=== PATIENT | male | born 1940 | race Caucasian/White ===

== ENCOUNTER 2017-06-01 17:30 | Inpatient (IN) | payer MEDICARE, BC ==
[~2017-06-01] VITALS: Ht 177.8 cm; Wt 76.2 kg
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
--- NOTE | ~2017-06-01 | PN ---
PATIENT:KARINA GLEASON MEDICAL RECORD: [id number] LOCATION:[facility] [address] ADMISSION DATE: 06/01/17 PROGRESS NOTE DATE OF SERVICE: 06/14/2017 SUBJECTIVE: The patient's case was discussed with staff. He has no new complaint. OBJECTIVE: The patient is significantly and seriously impaired. He is not eating well. He is regularly agitated and requires p.r.n. medications to calm him. ASSESSMENT: No change in diagnoses. PLAN: The patient has end-stage dementia. I am going to treat him with Megace to stimulate his appetite. I do not think he is appropriate for an assisted living center and even beyond that I must regrettably say that I do think he is appropriate for palliative care or even hospice. TRANSINT:[id number] Voice Confirmation ID: [id number] DOCUMENT ID: [id number] KAREEM PRAJAPATI MD at 1016 CC: [id number] DICTATION DATE: 06/14/17 190 REFINER OPERATOR: 06/15/17 0327 ADM IN [facility] [address] [place] [address]
--- NOTE | ~2017-06-01 | PN ---
PATIENT:KARINA GLEASON MEDICAL RECORD: [id number] LOCATION:[facility] ADMISSION DATE: 06/01/17 PROGRESS NOTE DATE OF SERVICE: 06/10/2017 SUBJECTIVE: The patient's case was discussed with staff. He has no new complaint. OBJECTIVE: The patient has been combative and at times difficult to redirect. His oral intake is poor. He did require p.r.n. medication earlier today because of agitation. ASSESSMENT: No change in diagnoses. PLAN: The patient is taking antipsychotic and a benzodiazepine to assist with his agitation and anxiety. He is tolerating these initial doses well. I would like to see how it goes a little longer before I try to increase it because I am fearful of precipitating a fall in this patient who so far ambulates with reasonable stability. There is a concern with his oral intake. He is very advanced in his dementia. He tends to just grab and mash food on his plate through his hands in a way that is very primitive and consistent with an advanced dementia. I have asked nursing staff to feed him. I think that will help. I am also going to give him an appetite stimulant. This dementia is advanced. His prognosis is poor. I am hopeful that we can help him some, but it is a very advanced case and it is not unreasonable to consider comfort care or even hospice for him. TRANSINT:[id number] Voice Confirmation ID: [id number] DOCUMENT ID: [id number] KAREEM PRAJAPATI MD at 0804 CC: [id number] DICTATION DATE: 06/10/17 1410 OUTSOLES CHANNEL OPENER: 06/10/17 1501 ADM IN [place] [id number] [place] [address]
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
--- NOTE | ~2017-06-01 | PN ---
PATIENT:KARINA GLEASON MEDICAL RECORD: [id number] LOCATION:[facility] [address] ADMISSION DATE: 06/01/17 PROGRESS NOTE DATE OF SERVICE: 06/03/2017 SUBJECTIVE: The patient's case was discussed with staff. He has no new complaint. OBJECTIVE: The patient is in good behavioral control with limited insight about his condition. He was not in good behavioral control last night and required p.r.n. medications on 2 occasions for agitation that are documented elsewhere. He has no recollection of these events when asked about it, it is clear that his dementia is advanced. ASSESSMENT: No change in diagnoses. PLAN: Brief supportive and educational interventions were made. I am going to prescribe Geodon at a dose of 20 mg twice daily for the patient's agitation. He will be monitored for clinical changes associated with its use. His long-term prognosis is guarded. TRANSINT:[id number] Voice Confirmation ID: [id number] DOCUMENT ID: [id number] KAREEM PRAJAPATI MD at 1403 CC: [id number] DICTATION DATE: 06/03/17 1334 FIELD INSTALLER: 06/03/17 1347 ADM IN [facility] [address] [place] [address]
--- NOTE | ~2017-06-01 | PN ---
PATIENT:KARINA GLEASON MEDICAL RECORD: [id number] LOCATION:[facility] ADMISSION DATE: 06/01/17 PROGRESS NOTE DATE OF SERVICE: 06/07/2017 SUBJECTIVE: The patient's case was discussed with staff. He has no new complaint. OBJECTIVE: The patient is in good behavioral control with limited insight about his condition. He tolerates his medicines well, but is somewhat sleepy. He has not been aggressive. ASSESSMENT: No change in diagnoses. PLAN: The patient's trazodone is going to be discontinued and his scheduled dose of Geodon cut in half. I suspect that the Geodon is making him sleepy. He will be monitored for side effects. His long-term prognosis is guarded. TRANSINT:[id number] Voice Confirmation ID: [id number] DOCUMENT ID: [id number] KAREEM PRAJAPATI MD at 1344 CC: [id number] DICTATION DATE: 06/07/17 1422 NURSING PROGRAM DIRECTOR: 06/07/17 1446 ADM IN [place] [id number] [place] [id number]
--- NOTE | ~2017-06-01 | PN ---
PATIENT:KARINA GLEASON MEDICAL RECORD: [id number] LOCATION:[facility] [address] ADMISSION DATE: 06/01/17 PROGRESS NOTE DATE OF SERVICE: 06/08/2017 SUBJECTIVE: The patient's case was discussed with staff. He has no new complaint. OBJECTIVE: The patient is in good behavioral control with limited insight about his condition. He tolerates his medicines well. ASSESSMENT: No change in diagnoses. PLAN: Brief supportive and educational interventions were made. Skilled Nursing prognosis is guarded. TRANSINT:[id number] Voice Confirmation ID: [id number] DOCUMENT ID: [id number] KAREEM PRAJAPATI MD at 1218 CC: [id number] DICTATION DATE: 06/08/17 1446 DIVISION CONTROLLER: 06/08/17 1459 ADM IN [place] [id number] [place] [address]
--- NOTE | ~2017-06-01 | PN ---
PATIENT:KARINA GLEASON MEDICAL RECORD: [id number] LOCATION:[facility] [address] ADMISSION DATE: 06/01/17 PROGRESS NOTE DATE OF SERVICE: 06/09/2017 SUBJECTIVE: The patient's case was discussed with staff. He has no new complaint. OBJECTIVE: The patient is in good behavioral control with limited insight about his condition. He does tolerate his medicines well. ASSESSMENT: No change in diagnoses. PLAN: Current medicines and therapies have been reviewed. His long-term prognosis is guarded. TRANSINT:[id number] Voice Confirmation ID: [id number] DOCUMENT ID: [id number] KAREEM PRAJAPATI MD at 1341 CC: [id number] DICTATION DATE: 06/09/17 1231 SHANK BONER: 06/09/17 1245 ADM IN [address] [id number] [place] [address]
--- NOTE | ~2017-06-01 | PN ---
PATIENT:KARINA GLEASON MEDICAL RECORD: [id number] LOCATION:[facility] [address] ADMISSION DATE: 06/01/17 PROGRESS NOTE DATE OF SERVICE: 06/04/2017 SUBJECTIVE: No new complaint. OBJECTIVE: The patient has been occasionally noncompliant with medication. He did require p.r.n. last time because of agitation. On exam, mood is euthymic. Affect is rather constricted. Speech is terse. Content of thought unchanged. Sensorium unchanged. ASSESSMENT: No change in diagnosis. PLAN: 1. Continue current medication. 2. Continue supportive therapy. TRANSINT:[id number] Voice Confirmation ID: [id number] DOCUMENT ID: [id number] ADELFO HUSSEIN III, MD at 1341 CC: [id number] DICTATION DATE: 06/04/17 1146 PARTY HOST: 06/04/17 1200 ADM IN [place] [id number] [place] [id number]
--- NOTE | ~2017-06-01 | PN ---
PATIENT:KARINA GLEASON MEDICAL RECORD: [id number] LOCATION:[facility] [address] ADMISSION DATE: 06/01/17 PROGRESS NOTE DATE OF SERVICE: 06/11/2017 SUBJECTIVE: No new complaint. OBJECTIVE: The patient has been agitated and aggressive over the last 24 hours. Geodon dosage was increased earlier this morning. On exam, mood is very irritable. Affect is brittle. Speech is terse. Content of thought is positive for nonspecific paranoid ideation. Sensorium shows no change. ASSESSMENT: No change in diagnosis. PLAN: 1. Continue current medication. 2. Continue supportive therapy. TRANSINT:[id number] Voice Confirmation ID: [id number] DOCUMENT ID: [id number] ADELFO HUSSEIN III, MD at 1037 CC: [id number] DICTATION DATE: 06/11/17 1114 TEMPERATURE CONTROL INSPECTOR: 06/11/17 1257 ADM IN [place] [id number] [place] [id number]
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
[2017-06-01] MEDS ORDERED: KLONOPIN1 MG PO (18:49)
[2017-06-01] MEDS ORDERED: TRANXENE T-TAB7.5 MG PO ×2 (18:51→19:56)
[2017-06-01] MEDS ORDERED: ACETAMINOPHEN325 MG PO (18:54)
[2017-06-01] MEDS ORDERED: SEROQUEL XR50 MG PO (18:56)
[2017-06-01] MEDS ORDERED: RESTORIL15 MG PO (18:59)
[2017-06-01 19:30] VITALS: BP 142/78
[2017-06-01] MEDS ORDERED: NORVASC5 MG PO (19:43)
[2017-06-01] MEDS ORDERED: BAYER CHEWABLE81 MG PO (19:45)
[2017-06-01] MEDS ORDERED: ARICEPT10 MG PO (19:48)
[2017-06-01] MEDS ORDERED: NEURONTIN600 MG PO (19:51)
[2017-06-01] MEDS ORDERED: MOBIC7.5 MG PO (19:52)
[2017-06-01] MEDS ORDERED: PRAVACHOL20 MG PO (19:53)
[2017-06-01] MEDS ORDERED: SEROQUEL200 MG PO (19:59)
[2017-06-01] MEDS ORDERED: DESERYL100 MG PO (20:00)
[2017-06-01 22:02] VITALS: BP 135/71; BMI 25.6
[2017-06-02 07:29] LABS: BASOPHILS 0.5 % (0-2); EOSINOPHILS 2.5 % (0-7); HEMATOCRIT 38.5 % (42.0-54.0); HEMOGLOBIN 12.4 g/dL (13.5-17.5); LYMPHOCYTES 13.3 % (15-50); MCHC 32.2 g/dL (31.0-37.0); MONOCYTES 7.1 % (2-11); NEUTROPHILS 76.6 % (40-80); PLATELET COUNT 257 10x3/uL (130-400); RBC 4.14 10x6/uL (4.20-6.10); RDW 13.1 % (11.5-14.5); WBC 6.3 10x3/uL (4.8-10.8)
[2017-06-02 07:55] VITALS: BP 138/73
[2017-06-02 08:35] LABS: ALBUMIN 3.7 g/dL (3.4-5.0); ALKALINE PHOSPHATASE 49 U/L (46-116); ALT (SGPT) 16 U/L (10-68); CALC OSMOLALITY 281 mosm/kg (275-300); CARBON DIOXIDE 27.5 mmol/L (21.0-32.0); CHLORIDE - SERUM 105 mmol/L (98-107); CHOL - HDL RATIO 3.9 ratio (2.3-4.9); CHOLESTEROL, TOTAL 155 mg/dL (0-200); CREATININE - SERUM 0.9 mg/dL (0.6-1.3); GLUCOSE 101 mg/dL (74-106); HDL CHOLESTEROL 40 mg/dL (32-96); LDL CHOLESTEROL 99 mg/dL (0-100); LDL-HDL RATIO 2.5 ratio (1.5-3.5); POTASSIUM - SERUM 4.2 mmol/L (3.5-5.1); PROTEIN - SERUM 6.3 g/dL (6.4-8.2); SODIUM 141 mmol/L (136-145); THYROID STIMULATING HORMONE 0.44 uIU/mL (0.36-3.74); TRIGLYCERIDE 82 mg/dL (30-200); UREA NITROGEN 14 mg/dL (7-18); eGFR NON AFRICAN AMERICAN 87 mL/min (90-120)
[2017-06-02 09:58] VITALS: BMI 25.6
[2017-06-02 10:28] VITALS: Ht 177.8 cm; Wt 76.2 kg
[2017-06-02 20:48] VITALS: BP 140/87
[2017-06-03 06:14] LABS: FOLATE (FOLIC ACID) - SERUM 12.6 ng/mL (>3.0); RAPID PLASMA REAGIN Non Reactive (Non Reactive)
[2017-06-03 07:25] LABS: VITAMIN D 25 HYDROXY 37.9 ng/mL (30.0-100.0)
[2017-06-03 08:11] VITALS: BP 138/77
[2017-06-05 12:49] VITALS: BP 174/96
[2017-06-06 07:00] VITALS: BP 135/81
[2017-06-06 16:10] LABS: APPEARANCE CLEAR (CLEAR); BILIRUBIN NEGATIVE (NEGATIVE); COLOR DK YELLOW (YELLOW); GLUCOSE NEGATIVE (NEGATIVE); KETONE NEGATIVE (NEGATIVE); NITRITE NEGATIVE (NEGATIVE); PROTEIN NEGATIVE (NEGATIVE); SPECIFIC GRAVITY 1.025 (1.005-1.020); UROBILINOGEN NORMAL (NORMAL)
[2017-06-06 16:14] LABS: BACTERIA MODERATE /hpf (NONE SEEN); CALCIUM OXALATE CRYSTALS 25-50 /hpf (NONE SEEN); EPITHELIAL CELLS OCC /hpf (0-5); GRANULAR CAST RARE /lpf (NONE SEEN); HYALINE CAST OCC /lpf (NONE SEEN); MUCUS >1+ /lpf (NONE SEEN); RED CELLS - URINE 0-5 /hpf (0-5); WHITE CELLS - URINE OCC /hpf (0-5)
[2017-06-06 21:12] VITALS: BP 139/100
[2017-06-07 07:28] VITALS: BP 116/69
[2017-06-07 21:22] VITALS: BP 130/79
[2017-06-08 09:45] VITALS: BP 140/117
[2017-06-08 19:41] VITALS: BP 115/75
[2017-06-09 08:54] VITALS: BP 103/61
[2017-06-09 20:50] VITALS: BP 130/78
[2017-06-10 08:38] VITALS: BP 136/88
[2017-06-11 09:45] VITALS: BP 148/68
[2017-06-11 19:20] VITALS: BP 132/81
[2017-06-12 09:41] VITALS: BP 133/73
[2017-06-12 20:49] VITALS: BP 160/83
[2017-06-13 07:00] VITALS: BP 142/83
[2017-06-14 20:03] LABS: HEMATOCRIT 41.9 % (42.0-54.0); HEMOGLOBIN 14.4 g/dL (13.5-17.5); MCHC 34.4 g/dL (31.0-37.0); MCV 90.1 fL (80.0-100.0); MEAN PLATELET VOLUME 10.2 fL (7.4-10.4); PLATELET COUNT 411 10x3/uL (130-400); RBC 4.65 10x6/uL (4.20-6.10); RDW 12.8 % (11.5-14.5); WBC 24.7 10x3/uL (4.8-10.8)
[2017-06-14 20:09] VITALS: BP 106/91
[2017-06-14 20:53] LABS: CALCIUM 9.5 mg/dL (8.5-10.1); CARBON DIOXIDE 24.8 mmol/L (21.0-32.0); CREATININE - SERUM 1.3 mg/dL (0.6-1.3); POTASSIUM - SERUM 3.8 mmol/L (3.5-5.1)
[2017-06-14 21:34] LABS: EOSINOPHILS 2 % (0-7); LYMPHOCYTES 9 % (15-50); MONOCYTES 3 % (2-11); NEUTROPHILS 86 % (40-80); PLATELET ESTIMATE NORMAL
[2017-06-15 07:00] VITALS: BP 105/55
[2017-06-15] MEDS ORDERED: NORVASC10 MG PO (10:06)
[2017-06-15] MEDS ORDERED: MEGACE40 MG PO (10:06)
[2017-06-15] MEDS ORDERED: KLONOPIN0.5 MG PO (10:08)
[2017-06-15] MEDS ORDERED: GEODON20 MG PO (10:08)
== END 2017-06-15 11:32 | disposition short-term general hospital (02) | DRG 56 ==
LOC: D.PSYCH 17:30
PROVIDERS: Psychiatry & Neurology Psychiatry
DX: G30.1 Alzheimer's disease with late onset (principal); J18.9 Pneumonia, unspecified organism; F02.81 Dementia in other diseases classified elsewhere, unspecified severity, with behavioral disturbance; I25.10 Atherosclerotic heart disease of native coronary artery without angina pectoris; Z95.5 Presence of coronary angioplasty implant and graft; I10 Essential (primary) hypertension; E78.5 Hyperlipidemia, unspecified; M19.90 Unspecified osteoarthritis, unspecified site; F41.9 Anxiety disorder, unspecified; D64.9 Anemia, unspecified; Z87.891 Personal history of nicotine dependence

== ENCOUNTER 2017-06-15 12:17 | Inpatient (IN) | payer MEDICARE, BC ==
[~2017-06-15] VITALS: Ht 177.8 cm; Wt 67.1 kg
--- NOTE | ~2017-06-15 | CN ---
PATIENT NAME:KARINA GLEASON MEDICAL RECORD: [id number] : 42 LOCATION:[address] ADMIT DATE: 06/15/17 ACCOUNT: [id number] CONSULTING PHYSICIAN: ZOHAIB ESPAÑA MD REFERRING PHYSICIAN: DWAYNE LIPSCOMB MD DATE OF CONSULTATION: 06/15/2017 CONSULT REQUESTING PHYSICIAN: aLine Morales MD REASON FOR CONSULTATION: Left lower lobe pneumonia, fever. HISTORY OF PRESENT ILLNESS: The patient was transferred to the medical [facility] with a fever and leukocytosis of 24,000. The patient is very confused. The history was taken mainly by talking to Dr. Morales and the patient's . The patient had pneumonia in March. REVIEW OF SYSTEMS: The detail is not obtainable. PAST MEDICAL HISTORY: 1. Pneumonia. 2. COPD. 3. Gastroesophageal reflux disease. 4. Hyperlipidemia. 5. Coronary artery disease. 6. Hypertension. 7. Alzheimer dementia of severe degree. 8. Anxiety. ALLERGIES: He has no known drug allergy. SURGICAL HISTORY: He has a knee surgery in July of last year. PRESENT MEDICATIONS: On Changers is reviewed. PERSONAL AND SOCIAL HISTORY: He is an ex-smoker, nondrinker. FAMILY HISTORY: Noncontributory. PHYSICAL EXAMINATION: GENERAL: Now, the patient is lying comfortably. He is not in acute distress. VITAL SIGNS: The blood pressure is 100/60, pulse is 60, respiration is 16, temperature 100.8, SPO2 is 90% to 93% on room air. HEENT: Conjunctivae pink. Sclerae nonicteric. NECK: Supple, no JVD. CHEST: There is left basal crackle. No wheezing. HEART: Rhythm regular, normal sound, no murmur. ABDOMEN: Soft, bowel sounds present. No hepatosplenomegaly. RECTAL: Deferred. EXTREMITIES: No cyanosis, no clubbing. There is right lower extremity edema. LABORATORY DATA: CBC: WBC 25, hemoglobin 12.6, hematocrit 37.2, the platelet count is 296. IMPRESSION: 1. Pneumonia, left lower lobe, most likely hospital-acquired pneumonia with the CONSULT REPORT [id number] KARINA GLEASON patient's recent hospitalization, rule out aspiration. 2. Gastroesophageal reflux disease. 3. Dementia of Alzheimer type of severe degree. 4. Febrile illness. 5. Leukocytosis secondary to pneumonia. RECOMMENDATION: 1. Albuterol ipratropium nebulizer. 2. Discontinue Rocephin. Start him on cefepime, Levaquin, and vancomycin. 3. Follow up labs and chest radiograph. 4. Speech evaluation. Dr. Morales, thank you for involving me in the care of Mr. Gleason. TRANSINT:[id number] Voice Confirmation ID: [id number] DOCUMENT ID: [id number] ZOHAIB ESPAÑA MD at 1410 CC: [id number] DICTATION DATE: 06/15/17 180 CREDIT INTERN: 06/16/17 0125 ADM IN [facility] [address] [place] [id number]
--- NOTE | ~2017-06-15 | PN ---
PATIENT:KARINA GLEASON MEDICAL RECORD: [id number] LOCATION:[address] ADMISSION DATE: 06/15/17 PROGRESS NOTE DATE OF SERVICE: 06/15/2017 SUBJECTIVE: The patient's case was discussed with staff. He has no new complaint. OBJECTIVE: The patient is in good behavioral control with limited insight about his condition. He tolerates his medicines well. ASSESSMENT: No change in diagnoses. PLAN: The patient is apparently suffering from pneumonia. This would certainly explain his lethargy. His primary care physician is going to transfer him to internal medicine for evaluation and treatment and he may be returned here if it is appropriate once that treatment is completed. TRANSINT:[id number] Voice Confirmation ID: [id number] DOCUMENT ID: [id number] KAREEM PRAJAPATI MD at 1444 CC: [id number] DICTATION DATE: 06/15/17 1517 SENIOR LINUX ENGINEER: 06/15/17 1537 ADM IN [place] [id number] [place] [address]
[~2017-06-15 12:17] MED LIST: ACETAMINOPHEN325 MG PO; ARICEPT10 MG PO; BAYER CHEWABLE81 MG PO; DESERYL100 MG PO; GEODON20 MG PO; KLONOPIN0.5 MG PO; KLONOPIN1 MG PO; MEGACE40 MG PO; MOBIC7.5 MG PO; NEURONTIN600 MG PO; NORVASC10 MG PO; NORVASC5 MG PO; PRAVACHOL20 MG PO; RESTORIL15 MG PO; SEROQUEL XR50 MG PO; SEROQUEL200 MG PO; TRANXENE T-TAB7.5 MG PO
[2017-06-15 14:04] VITALS: BMI 22.7
[2017-06-15 16:34] VITALS: BP 100/60
[2017-06-15 17:34] LABS: APPEARANCE CLEAR (CLEAR); COLOR YELLOW (YELLOW); SPECIFIC GRAVITY 1.025 (1.005-1.020)
[2017-06-15 17:36] LABS: BACTERIA FEW /hpf (NONE SEEN); BILIRUBIN NEGATIVE (NEGATIVE); GLUCOSE NEGATIVE (NEGATIVE); KETONE MODERATE mg/dL (NEGATIVE); NITRITE NEGATIVE (NEGATIVE); PROTEIN TRACE mg/dL (NEGATIVE); RED CELLS - URINE OCC /hpf (0-5); UROBILINOGEN NORMAL (NORMAL); WHITE CELLS - URINE 0-5 /hpf (0-5)
[2017-06-15 17:40] LABS: HEMATOCRIT 37.2 % (42.0-54.0); HEMOGLOBIN 12.6 g/dL (13.5-17.5); MCH 30.7 pg (26.0-34.0); MCHC 33.9 g/dL (31.0-37.0); MCV 90.5 fL (80.0-100.0); RBC 4.11 10x6/uL (4.20-6.10); RDW 12.9 % (11.5-14.5)
[2017-06-15 17:41] LABS: BASOPHILS 0 % (0-2); EOSINOPHILS 0 % (0-7); IMMATURE GRANULOCYTES 0.8 % (0-5); LYMPHOCYTES 3.8 % (15-50); MEAN PLATELET VOLUME 10.5 fL (7.4-10.4); MONOCYTES 4.8 % (2-11); NEUTROPHILS 90.6 % (40-80); PLATELET COUNT 296 10x3/uL (130-400)
[2017-06-15 21:30] VITALS: BP 94/52
[2017-06-16 01:12] VITALS: BP 90/53
[2017-06-16 05:18] LABS: BASOPHILS 0.1 % (0-2); EOSINOPHILS 0.2 % (0-7); HEMATOCRIT 33.2 % (42.0-54.0); HEMOGLOBIN 10.9 g/dL (13.5-17.5); IMMATURE GRANULOCYTES 0.4 % (0-5); LYMPHOCYTES 7.3 % (15-50); MCH 29.9 pg (26.0-34.0); MCHC 32.8 g/dL (31.0-37.0); MEAN PLATELET VOLUME 10.8 fL (7.4-10.4); MONOCYTES 4.8 % (2-11); NEUTROPHILS 87.2 % (40-80); PLATELET COUNT 265 10x3/uL (130-400); RBC 3.65 10x6/uL (4.20-6.10); WBC 18.9 10x3/uL (4.8-10.8)
[2017-06-16 05:21] VITALS: BP 90/53
[2017-06-16 05:39] LABS: ALBUMIN 2.3 g/dL (3.4-5.0); ANION GAP 12.5 mmol/L (8-16); BILIRUBIN - TOTAL 0.9 mg/dL (0.2-1.3); CALCIUM 8.3 mg/dL (8.5-10.1); CARBON DIOXIDE 26.9 mmol/L (21.0-32.0); CREATININE - SERUM 1.1 mg/dL (0.6-1.3); MAGNESIUM - SERUM 1.7 mg/dL (1.8-2.4); POTASSIUM - SERUM 3.4 mmol/L (3.5-5.1); PROTEIN - SERUM 5.6 g/dL (6.4-8.2)
[2017-06-16 08:09] VITALS: BP 101/66
[2017-06-16 10:58] VITALS: Ht 177.8 cm; Wt 67.1 kg
[2017-06-16 11:34] VITALS: BP 177/74
[2017-06-16 15:36] VITALS: BP 98/56
[2017-06-16 20:11] VITALS: BP 131/74
[2017-06-17] VITALS: BP 124/65
[2017-06-17 05:33] VITALS: BP 119/69
[2017-06-17 06:24] LABS: BASOPHILS 0.1 % (0-2); EOSINOPHILS 0.5 % (0-7); HEMATOCRIT 33.7 % (42.0-54.0); HEMOGLOBIN 11.4 g/dL (13.5-17.5); IMMATURE GRANULOCYTES 0.3 % (0-5); LYMPHOCYTES 6.1 % (15-50); MCH 30.6 pg (26.0-34.0); MCHC 33.8 g/dL (31.0-37.0); MCV 90.6 fL (80.0-100.0); MEAN PLATELET VOLUME 11.3 fL (7.4-10.4); MONOCYTES 4.2 % (2-11); NEUTROPHILS 88.8 % (40-80); PLATELET COUNT 306 10x3/uL (130-400); RBC 3.72 10x6/uL (4.20-6.10); RDW 12.7 % (11.5-14.5); WBC 15.6 10x3/uL (4.8-10.8)
[2017-06-17 06:32] LABS: CALC OSMOLALITY 277 mosm/kg (275-300); CALCIUM 8.5 mg/dL (8.5-10.1); CARBON DIOXIDE 23.2 mmol/L (21.0-32.0); CHLORIDE - SERUM 104 mmol/L (98-107); GLUCOSE 100 mg/dL (74-106); POTASSIUM - SERUM 3.3 mmol/L (3.5-5.1); SODIUM 138 mmol/L (136-145); eGFR NON AFRICAN AMERICAN 77 mL/min (90-120)
[2017-06-17 06:38] LABS: UREA NITROGEN 17 mg/dL (7-18)
[2017-06-17 08:33] VITALS: BP 125/79
[2017-06-17 09:17] LABS: IMMUNOGLOBULIN A 111 mg/dL (61-437); IMMUNOGLOBULIN G 489 mg/dL (700-1600); IMMUNOGLOBULIN M 42 mg/dL (15-143)
[2017-06-17 13:08] VITALS: BP 118/71
[2017-06-17 16:03] VITALS: BP 144/82
[2017-06-17 20:00] VITALS: BP 110/67
[2017-06-18] VITALS: BP 118/66
[2017-06-18 04:00] VITALS: BP 120/68
[2017-06-18 04:25] LABS: BASOPHILS 0.2 % (0-2); EOSINOPHILS 1.4 % (0-7); HEMOGLOBIN 11.7 g/dL (13.5-17.5); IMMATURE GRANULOCYTES 0.2 % (0-5); LYMPHOCYTES 8.9 % (15-50); MCH 30.2 pg (26.0-34.0); MCHC 33.4 g/dL (31.0-37.0); MCV 90.4 fL (80.0-100.0); MEAN PLATELET VOLUME 10.5 fL (7.4-10.4); MONOCYTES 5.7 % (2-11); NEUTROPHILS 83.6 % (40-80); RBC 3.87 10x6/uL (4.20-6.10); RDW 12.9 % (11.5-14.5); WBC 12.2 10x3/uL (4.8-10.8)
[2017-06-18 04:26] LABS: PLATELET COUNT 368 10x3/uL (130-400)
[2017-06-18 05:15] LABS: CALC OSMOLALITY 281 mosm/kg (275-300); CALCIUM 8.5 mg/dL (8.5-10.1); CARBON DIOXIDE 24.5 mmol/L (21.0-32.0); CHLORIDE - SERUM 106 mmol/L (98-107); GLUCOSE 106 mg/dL (74-106); POTASSIUM - SERUM 3.3 mmol/L (3.5-5.1); SODIUM 142 mmol/L (136-145); UREA NITROGEN 11 mg/dL (7-18); eGFR NON AFRICAN AMERICAN 77 mL/min (90-120)
[2017-06-18 09:56] VITALS: BP 141/82
[2017-06-18 12:23] VITALS: BP 133/80
[2017-06-18 16:59] VITALS: BP 137/90
[2017-06-18 20:33] VITALS: BP 137/98
[2017-06-18 23:55] LABS: ALBUMIN 2.5 g/dL (3.4-5.0); ALKALINE PHOSPHATASE 56 U/L (46-116); ALT (SGPT) 32 U/L (10-68); CALC OSMOLALITY 279 mosm/kg (275-300); CALCIUM 8.2 mg/dL (8.5-10.1); CARBON DIOXIDE 25.2 mmol/L (21.0-32.0); CHLORIDE - SERUM 105 mmol/L (98-107); CREATININE - SERUM 0.9 mg/dL (0.6-1.3); GLUCOSE 101 mg/dL (74-106); POTASSIUM - SERUM 3.3 mmol/L (3.5-5.1); PROTEIN - SERUM 6.3 g/dL (6.4-8.2); SODIUM 141 mmol/L (136-145); UREA NITROGEN 11 mg/dL (7-18); eGFR NON AFRICAN AMERICAN 87 mL/min (90-120)
[2017-06-19 00:41] VITALS: BP 137/90
[2017-06-19 05:37] LABS: BASOPHILS 0.2 % (0-2); HEMATOCRIT 37.7 % (42.0-54.0); HEMOGLOBIN 12.7 g/dL (13.5-17.5); IMMATURE GRANULOCYTES 0.4 % (0-5); LYMPHOCYTES 8.4 % (15-50); MCH 30.2 pg (26.0-34.0); MCHC 33.7 g/dL (31.0-37.0); MCV 89.5 fL (80.0-100.0); MEAN PLATELET VOLUME 10.5 fL (7.4-10.4); MONOCYTES 5.7 % (2-11); NEUTROPHILS 83.3 % (40-80); PLATELET COUNT 424 10x3/uL (130-400); RBC 4.21 10x6/uL (4.20-6.10); RDW 12.8 % (11.5-14.5); WBC 15.1 10x3/uL (4.8-10.8)
[2017-06-19 05:50] VITALS: BP 137/82
[2017-06-19 06:09] LABS: CALC OSMOLALITY 279 mosm/kg (275-300); CALCIUM 8.8 mg/dL (8.5-10.1); CARBON DIOXIDE 23.3 mmol/L (21.0-32.0); CHLORIDE - SERUM 105 mmol/L (98-107); CREATININE - SERUM 0.8 mg/dL (0.6-1.3); GLUCOSE 107 mg/dL (74-106); POTASSIUM - SERUM 3.5 mmol/L (3.5-5.1); SODIUM 141 mmol/L (136-145); UREA NITROGEN 9 mg/dL (7-18); eGFR NON AFRICAN AMERICAN > 90 mL/min (90-120)
[2017-06-19 08:13] VITALS: BP 157/85
[2017-06-19 11:25] VITALS: BP 131/83
[2017-06-19 15:44] VITALS: BP 140/78
[2017-06-19 20:30] VITALS: BP 150/85
[2017-06-20 00:30] VITALS: BP 152/94
[2017-06-20 04:30] VITALS: BP 127/89
[2017-06-20 06:24] LABS: CALC OSMOLALITY 279 mosm/kg (275-300); CALCIUM 8.6 mg/dL (8.5-10.1); CARBON DIOXIDE 23.4 mmol/L (21.0-32.0); CHLORIDE - SERUM 103 mmol/L (98-107); CREATININE - SERUM 0.8 mg/dL (0.6-1.3); GLUCOSE 104 mg/dL (74-106); POTASSIUM - SERUM 3.7 mmol/L (3.5-5.1); SODIUM 141 mmol/L (136-145); UREA NITROGEN 9 mg/dL (7-18); eGFR NON AFRICAN AMERICAN > 90 mL/min (90-120)
[2017-06-20 06:27] LABS: BASOPHILS 0.3 % (0-2); EOSINOPHILS 1.1 % (0-7); HEMATOCRIT 39.4 % (42.0-54.0); HEMOGLOBIN 13.2 g/dL (13.5-17.5); IMMATURE GRANULOCYTES 0.4 % (0-5); LYMPHOCYTES 6.8 % (15-50); MCH 29.9 pg (26.0-34.0); MCHC 33.5 g/dL (31.0-37.0); MCV 89.3 fL (80.0-100.0); MEAN PLATELET VOLUME 10.7 fL (7.4-10.4); NEUTROPHILS 84.4 % (40-80); PLATELET COUNT 369 10x3/uL (130-400); RBC 4.41 10x6/uL (4.20-6.10); WBC 15.2 10x3/uL (4.8-10.8)
[2017-06-20 08:29] VITALS: BP 152/93
[2017-06-20 11:31] VITALS: BP 112/67
[2017-06-20 15:47] VITALS: BP 148/77
[2017-06-20 20:30] VITALS: BP 163/87
[2017-06-21 00:30] VITALS: BP 123/63
[2017-06-21 04:30] VITALS: BP 127/78
[2017-06-21 05:26] LABS: HEMATOCRIT 33.8 % (42.0-54.0); HEMOGLOBIN 11.2 g/dL (13.5-17.5); MCH 29.7 pg (26.0-34.0); MCHC 33.1 g/dL (31.0-37.0); MCV 89.7 fL (80.0-100.0); MEAN PLATELET VOLUME 9.7 fL (7.4-10.4); PLATELET COUNT 402 10x3/uL (130-400); RBC 3.77 10x6/uL (4.20-6.10); WBC 20.5 10x3/uL (4.8-10.8)
[2017-06-21 05:48] LABS: CALCIUM 8.5 mg/dL (8.5-10.1); CARBON DIOXIDE 26.3 mmol/L (21.0-32.0); POTASSIUM - SERUM 3.3 mmol/L (3.5-5.1)
[2017-06-21 05:52] LABS: CREATININE - SERUM 1.1 mg/dL (0.6-1.3)
[2017-06-21 06:15] LABS: BASOPHILS 1 % (0-2); LYMPHOCYTES 9 % (15-50); MONOCYTES 4 % (2-11); NEUTROPHILS 85 % (40-80); PLATELET ESTIMATE INCREASED
[2017-06-21 08:21] VITALS: BP 114/70
[2017-06-21 09:05] LABS: POTASSIUM - SERUM 3.7 mmol/L (3.5-5.1); VANCOMYCIN - TROUGH 14.1 ug/mL (10.0-20.0)
[2017-06-21 12:15] VITALS: BP 119/66
[2017-06-21 17:24] VITALS: BP 105/73; BP 117/73
[2017-06-21 20:00] VITALS: BP 121/82
[2017-06-22 05:57] LABS: BASOPHILS 0.2 % (0-2); EOSINOPHILS 2.7 % (0-7); HEMATOCRIT 32.4 % (42.0-54.0); HEMOGLOBIN 10.6 g/dL (13.5-17.5); IMMATURE GRANULOCYTES 0.5 % (0-5); LYMPHOCYTES 7.9 % (15-50); MCH 29.4 pg (26.0-34.0); MCHC 32.7 g/dL (31.0-37.0); MEAN PLATELET VOLUME 9.8 fL (7.4-10.4); MONOCYTES 7.6 % (2-11); NEUTROPHILS 81.1 % (40-80); PLATELET COUNT 380 10x3/uL (130-400)
[2017-06-22 06:24] LABS: CALC OSMOLALITY 283 mosm/kg (275-300); CALCIUM 8.6 mg/dL (8.5-10.1); CARBON DIOXIDE 24.8 mmol/L (21.0-32.0); CHLORIDE - SERUM 107 mmol/L (98-107); CREATININE - SERUM 0.9 mg/dL (0.6-1.3); GLUCOSE 105 mg/dL (74-106); POTASSIUM - SERUM 3.2 mmol/L (3.5-5.1); SODIUM 142 mmol/L (136-145); UREA NITROGEN 14 mg/dL (7-18); eGFR NON AFRICAN AMERICAN 87 mL/min (90-120)
[2017-06-22 06:26] LABS: WBC 11.3 10x3/uL (4.8-10.8)
[2017-06-22 06:46] VITALS: BP 129/89
[2017-06-22 08:51] VITALS: BP 106/76
[2017-06-22 20:00] VITALS: BP 142/59
[2017-06-23 04:00] VITALS: BP 124/76
[2017-06-23 06:07] LABS: BASOPHILS 0.2 % (0-2); EOSINOPHILS 4.2 % (0-7); HEMOGLOBIN 11.4 g/dL (13.5-17.5); IMMATURE GRANULOCYTES 0.4 % (0-5); LYMPHOCYTES 11.2 % (15-50); MCH 29.6 pg (26.0-34.0); MCHC 32.6 g/dL (31.0-37.0); MCV 90.9 fL (80.0-100.0); MONOCYTES 6.9 % (2-11); NEUTROPHILS 77.1 % (40-80); RBC 3.85 10x6/uL (4.20-6.10); RDW 13.3 % (11.5-14.5); WBC 10.4 10x3/uL (4.8-10.8)
[2017-06-23 06:15] LABS: PLATELET COUNT 472 10x3/uL (130-400)
[2017-06-23 06:16] LABS: CALC OSMOLALITY 279 mosm/kg (275-300); CALCIUM 8.4 mg/dL (8.5-10.1); CHLORIDE - SERUM 105 mmol/L (98-107); CREATININE - SERUM 0.8 mg/dL (0.6-1.3); GLUCOSE 91 mg/dL (74-106); MAGNESIUM - SERUM 1.9 mg/dL (1.8-2.4); PHOSPHOROUS 2.6 mg/dL (2.5-4.9); POTASSIUM - SERUM 3.4 mmol/L (3.5-5.1); SODIUM 141 mmol/L (136-145); UREA NITROGEN 11 mg/dL (7-18); eGFR NON AFRICAN AMERICAN > 90 mL/min (90-120)
[2017-06-23 08:00] VITALS: BP 125/70
[2017-06-23 12:00] VITALS: BP 119/69
[2017-06-23 17:09] VITALS: BP 127/76
[2017-06-23 21:01] VITALS: BP 137/82
[2017-06-24 06:22] VITALS: BP 125/80
[2017-06-24 08:51] VITALS: BP 125/74
[2017-06-24 11:40] VITALS: BP 132/69
[2017-06-24] MEDS ORDERED: GUAIFENESI100 MG/5 M PO (12:40)
[2017-06-24] MEDS ORDERED: PROTONIX40 MG PO (12:41)
[2017-06-24] MEDS ORDERED: GEODON20 MG PO (12:41)
[2017-06-24] MEDS ORDERED: ATIVAN2 MG/ML IM (12:43)
== END 2017-06-24 17:45 | disposition home or self-care (01) | DRG 190 ==
LOC: D.M2 12:17
PROVIDERS: Family Medicine; Internal Medicine Pulmonary Disease
DX: J44.0 Chronic obstructive pulmonary disease with (acute) lower respiratory infection (principal); J18.9 Pneumonia, unspecified organism; K21.9 Gastro-esophageal reflux disease without esophagitis; E78.5 Hyperlipidemia, unspecified; I25.10 Atherosclerotic heart disease of native coronary artery without angina pectoris; M19.90 Unspecified osteoarthritis, unspecified site; I10 Essential (primary) hypertension; G30.9 Alzheimer's disease, unspecified; F02.80 Dementia in other diseases classified elsewhere, unspecified severity, without behavioral disturbance, psychotic disturbance, mood disturbance, and anxiety; F41.9 Anxiety disorder, unspecified; D64.9 Anemia, unspecified; Z87.891 Personal history of nicotine dependence; Z95.5 Presence of coronary angioplasty implant and graft